=== PATIENT | male | born 1965 | race Caucasian/White ===

== ENCOUNTER 2021-02-07 05:14 | Day surgery (SDC) | payer OTHER, BC ==
[~2021-02-07] VITALS: Ht 167.6 cm; Wt 98.2 kg
[~2021-02-07 05:14] MED LIST: ASPIRIN 32325 MG/TAB PO; BYSTOLIC5 MG PO; SYNTHROID0.125 MG/T PO
[2021-02-07 06:01] VITALS: BP 147/94; PULSE 78; TEMP 97.3
[2021-02-07] MEDS ORDERED: SYNTHROID0.1 MG/TAB PO (06:23)
[2021-02-07] MEDS ORDERED: COZAAR100 MG PO (06:23)
[2021-02-07] MEDS ORDERED: ZYRTEC ALLERGY10 MG PO (06:24)
[2021-02-07] MEDS ORDERED: ASPIRIN 81M81 MG/TA2 PO (06:24)
[2021-02-07 08:11] VITALS: BP 105/63; PULSE 87; TEMP 97.5
--- NOTE | 2021-02-07 08:11 | NUR ---
The patient arrived back to [facility] from the operating room at this time. The patient appears alert and oriented at this time. Post operative vital signs were started at this time. The patient has oxygen in place at 5L per simple mask. The patient has mesh underwear and folded 4x4 to this rectum both appear to be intact at this time. The patient denies wanting anything to eat or drink at this time. Call light is within reach. was brought back to be at his bedside.
[2021-02-07 08:26] VITALS: BP 107/63; PULSE 80
[2021-02-07] MEDS ORDERED: NORCO 325 MG-51 TAB PO (08:26)
--- NOTE | 2021-02-07 08:26 | NUR ---
The patient was weaned down to 3L of oxygen at this time and appears to be tolerating it well. The patient agrees to try some water at this time. Vital signs appear stable. The patient's is at his bedside. Will continue to monitor the patient.
[2021-02-07 08:41] VITALS: BP 112/70; PULSE 77
--- NOTE | 2021-02-07 08:41 | NUR ---
The patient was weaned off oxygen and appears to be tolerating room air well. The patient has tolerated the ice water well and requests to try a muffin at this time. Vital signs remain stable. Will continue to monitor the patient.
[2021-02-07 09:00] VITALS: BP 122/70; PULSE 73
--- NOTE | 2021-02-07 09:10 | NUR ---
The patient has finished his muffin and appeared to tolerate it well. The patient was given a PRN dose of Bruce one tab to continue to pain control upon discharge. The patient described having an urge to have a bowel movement and was escorted to the bathroom with the stand by assistance of one nurse and appeared to tolerate the activity well. The patient was unable to have the bowel movement and the gauze to his rectum was replaced after he was finished trying.
[2021-02-07 09:30] VITALS: BP 121/76; PULSE 75
--- NOTE | 2021-02-07 09:30 | NUR ---
Discharge instructions were reviewed with the patient and his at this time. They both verbalized understanding and have no questions for the nurse at this itme. The patient's IV to his left hand was removed and a pressure dressing was applied to the site. The nurse instructed the patient to get dressed and notify the staff when he is ready to escorted out.
--- NOTE | 2021-02-07 09:40 | NUR ---
The patient was escorted out via wheelchair to a private vehicle by SCARLETT Moralez. The patient's belongings and discharge paperwork were sent with him. The patient's is present to drive him home.
== END 2021-02-07 09:40 | disposition home or self-care (01) ==
LOC: SDCO 05:14
DX: K64.2 Third degree hemorrhoids (principal); K64.4 Residual hemorrhoidal skin tags; I10 Essential (primary) hypertension; E03.9 Hypothyroidism, unspecified; Z79.890 Hormone replacement therapy; Z79.899 Other long term (current) drug therapy; Z79.82 Long term (current) use of aspirin
CPT/HCPCS: J0690; J2405; J2704; J3010; J7120

== ENCOUNTER 2021-02-08 07:39 | Emergency (ER) | payer OTHER, BC ==
[~2021-02-08] VITALS: Ht 170.2 cm; Wt 100.0 kg
[~2021-02-08 07:39] MED LIST changes: +ASPIRIN 81M81 MG/TA2 PO; +COZAAR100 MG PO; +NORCO 325 MG-51 TAB PO; +SYNTHROID0.1 MG/TAB PO; +ZYRTEC ALLERGY10 MG PO
[2021-02-08 08:13] LABS: BASO # 0.1 (0.0-0.2); BASO % 0.4 % (0.0-2.0); EOS % 0.2 % (0-4.0); GRAN # 10.6 (1.4-6.5); GRAN % 79.7 % (42.2-75.2); HEMATOCRIT 41.8 % (42.0-52.0); HEMOGLOBIN 14.1 g/dl (13.5-18.0); LYMPH # 1.6 (1.2-3.4); LYMPH % 12.3 % (20.0-51.0); MEAN CELL VOLUME 83 fl (80.0-100.0); MEAN CORPUSCULAR HEMOGLOBIN 28 pg (27.0-31.0); MEAN CORPUSCULAR HGB CONC 34 g/dl (33.0-37.0); MEAN PLATELET VOLUME 9.9 fl (7.4-10.4); MONO # 0.9 (0.1-0.6); MONO % 7.1 % (1.7-9.3); PLATELET COUNT 244 K/mm3 (130-400); RED BLOOD COUNT 5.01 M/mm3 (4.20-5.60); REDCELL DISTRIBUTION WIDTH-CV 12.3 % (11.5-14.5)
[2021-02-08 08:43] LABS: ALBUMIN 3.6 gm/dL (3.5-5.0); BILIRUBIN,TOTAL 0.9 mg/dL (0.0-1.0); CALCIUM 8.4 mg/dL (8.4-10.2); CREATININE, serum 0.94 (0.66-1.25); POTASSIUM 3.9 mmol/L (3.4-5.0); TOTAL PROTEIN 6.7 gm/dL (6.4-8.2)
[2021-02-08 08:52] LABS: COLLECTION METHOD CLEAN CATCH
[2021-02-08 08:59] LABS: MUCOUS Present /lpf; PH 7 (5-8); SQUAMOUS EPITHELIAL None Seen /hpf; URINE APPEARANCE Clear; URINE BACTERIA None Seen /hpf; URINE BILIRUBIN Negative (NEGATIVE); URINE BLOOD Negative (NEGATIVE); URINE COLOR Straw; URINE GLUCOSE 1+ (NEGATIVE); URINE KETONE Trace (NEGATIVE); URINE LEUKOCYTE ESTERASE Negative (NEGATIVE); URINE NITRATE Negative (NEGATIVE); URINE PROTEIN(semi-quant) Negative (NEGATIVE); URINE RBC 0-2 /hpf; URINE UROBILINOGEN Negative (NEGATIVE)
[2021-02-08 09:57] VITALS: BP 154/95; PULSE 99; TEMP 98.7
== END 2021-02-08 10:12 | disposition home or self-care (01) ==
LOC: COL.ER 07:39
PROVIDERS: Emergency Medicine
DX: E86.0 Dehydration (principal); R50.9 Fever, unspecified
CPT/HCPCS: J7120

== ENCOUNTER 2021-02-16 21:47 | Observation (INO) | payer OTHER, BC ==
[~2021-02-16] VITALS: Ht 170.2 cm; Wt 100.1 kg
[2021-02-16 22:16] LABS: BASO # 0.1 (0.0-0.2); BASO % 0.7 % (0.0-2.0); EOS # 0.3 (0.0-0.7); GRAN # 7.4 (1.4-6.5); HEMOGLOBIN 11.8 g/dl (13.5-18.0); LYMPH # 4.3 (1.2-3.4); LYMPH % 32.9 % (20.0-51.0); MEAN CELL VOLUME 83 fl (80.0-100.0); MEAN CORPUSCULAR HEMOGLOBIN 28 pg (27.0-31.0); MEAN CORPUSCULAR HGB CONC 34 g/dl (33.0-37.0); MEAN PLATELET VOLUME 8.9 fl (7.4-10.4); MONO # 0.9 (0.1-0.6); MONO % 7.1 % (1.7-9.3); PLATELET COUNT 352 K/mm3 (130-400); RED BLOOD COUNT 4.21 M/mm3 (4.20-5.60); REDCELL DISTRIBUTION WIDTH-CV 12.3 % (11.5-14.5)
[2021-02-16 22:19] LABS: HEMATOCRIT 34.9 % (42.0-52.0)
[2021-02-16 22:34] LABS: ALBUMIN 3.6 gm/dL (3.5-5.0); BILIRUBIN,TOTAL 0.3 mg/dL (0.0-1.0); CALCIUM 8.5 mg/dL (8.4-10.2); CREATININE, serum 0.97 (0.66-1.25); POTASSIUM 3.9 mmol/L (3.4-5.0); TOTAL PROTEIN 6.7 gm/dL (6.4-8.2)
[2021-02-17] VITALS (14 sets, daily range): BP systolic 101–160; BP diastolic 57–75; PULSE 64–99; TEMP 98.1–98.8
--- NOTE | 2021-02-17 01:25 | NUR ---
ARRIVES VIA BED FROM PACU POST SURGERY. IS ALERT AND ORIENTED X4. IVF TO RIGHT UPPER FOREARM, NO REDNESS OR SWELLING. HAS MESH PANTIES ON, RECTAL PACKING IN PLACE. SPINAL ANESTHETIC WAS GIVEN, PT HAS NUMBNESS IN LEGS. SCDS ON.
[2021-02-17 02:40] LABS: HEMATOCRIT 27.5 % (42.0-52.0); HEMOGLOBIN 9.1 g/dl (13.5-18.0)
--- NOTE | 2021-02-17 04:11 | NUR ---
PT REPORTS ABD CRAMPING, OFFERED BEDPAN, PT REFUSES AT THIS TIME. SPINAL WEARING OFF, STILL HAS NUMBNESS IN LEGS, DOESN'T FEEL LIKE HE COULD WALK AT THIS TIME.
--- NOTE | 2021-02-17 05:00 | NUR ---
PT VOIDING PER URINAL WITHOUT PROBLEM. ASSISTED TO BATHROOM FOR BM, NO SUCCESS. RECTAL PACKING IN PLACE.
--- NOTE | 2021-02-17 06:39 | NUR ---
PT REPORTS NOT BEING ABLE TO URINATE, PREVIOUSLY HAS BEEN URINATING WITH SOME BURNING. WILL BLADDER SCAN.
--- NOTE | 2021-02-17 06:41 | NUR ---
PT HAS 103CC IN HIS BLADDER PER BLADDER SCAN.
[2021-02-17 06:51] LABS: HEMATOCRIT 27.6 % (42.0-52.0); HEMOGLOBIN 9.3 g/dl (13.5-18.0)
--- NOTE | 2021-02-17 07:00 | NUR ---
PT HAS MODERATE FORMED BM ON THE TOILET. RECTAL PACKING OUT.
--- NOTE | 2021-02-17 10:28 | NUR ---
Initial visit; Patient thanked Chummer for looking in on him and offering God's blessings.
--- NOTE | 2021-02-17 11:30 | NUR ---
Patient is doing ok. He has been resting this morning. He is tolerating clear liquid diet without issues. Denies pain and nausea. He had a small bloody stool, it was dark red, soft. No clots noted. No other changes at this time. Call light within reach.
--- NOTE | 2021-02-17 13:19 | NUR ---
SW met with the patient to discuss discharge plan. The patient lives in [place] with his , Giulia ([phone]), and their [id number] daughter. He reports independence with ADLs and does not have any DME. The patient's PCP is Dr. Mir Mistry and [facility] and [facility] in [place]. He reports no difficulties obtaining his meds. The patient does not have a DPOA-HC and he was not interested in completing one while here. The patient plans to return home with his family upon discharge. No additional needs at this time. *Discharge plan: home with family*
[2021-02-17 13:24] LABS: HEMATOCRIT 24.8 % (42.0-52.0); HEMOGLOBIN 8.3 g/dl (13.5-18.0)
--- NOTE | 2021-02-17 14:50 | NUR ---
Report from SCARLETT Rocha. Patient laying in bed, family at the bedside. Call light within reach. No needs expressed from the patient
--- NOTE | 2021-02-17 17:43 | NUR ---
Patient had one BM that was small and blood tinged. Denies any pain or discomfort. IV CDI, fluids infusing. VSS. A&Ox3. Family at the bedside. No further needs expressed from the patient. Call light within reach
[2021-02-17 19:30] LABS: HEMOGLOBIN 8.2 g/dl (13.5-18.0)
--- NOTE | 2021-02-17 21:00 | NUR ---
PT IN BED. DENIES PAIN. IS ALERT AND ORIENTED X4. IVF TO RIGHT FOREARM WITHOUT REDNESS OR SWELLING. REQUESTED PT CALL THIS NURSE IF HE HAS A BM, VERBALIZED UNDERSTANDING. VOIDING WITHOUT PROBLEM.
[2021-02-18 00:41] VITALS: BP 103/42; PULSE 83; TEMP 98.9
[2021-02-18 01:43] LABS: HEMATOCRIT 25.2 % (42.0-52.0)
[2021-02-18 01:46] LABS: HEMOGLOBIN 8.3 g/dl (13.5-18.0)
[2021-02-18 04:51] VITALS: BP 114/59; PULSE 80; TEMP 99.4
--- NOTE | 2021-02-18 06:00 | NUR ---
NO STOOLS THIS SHIFT. VOIDING WITHOUT DIFFICULTY. DENIES PAIN.
[2021-02-18 07:19] LABS: HEMATOCRIT 24.7 % (42.0-52.0)
[2021-02-18 07:59] VITALS: BP 125/69; PULSE 83; TEMP 99.4
--- NOTE | 2021-02-18 08:00 | NUR ---
Patient resting in bed at this time. Patient is alert and oriented, answers questions appropriately. Patient reports that he has not had bloody stools this morning, patient instructed to report stools to allow staff to assess them. Patient verbalizes understanding and denies pain or needs at this time, call light within reach.
[2021-02-18 12:24] VITALS: BP 131/73; PULSE 89; TEMP 98.5
[2021-02-18 15:12] VITALS: BP 131/73; PULSE 101; TEMP 98.8
--- NOTE | 2021-02-18 16:10 | NUR ---
Discharge teaching completed. Discussed discharge instructions, discharge medications, and follow up appointment. Questions asked and answered. IV removed, catheter intact, hemostasis achieved. Patient escorted to ED entrance where he entered a private vehicle.
== END 2021-02-18 16:10 | disposition home or self-care (01) ==
LOC: COL.ER 21:47 → SURG 23:26
PROVIDERS: Emergency Medicine; Surgery; ADMIT Surgery
DX: K91.840 Postprocedural hemorrhage of a digestive system organ or structure following a digestive system procedure (principal); K62.5 Hemorrhage of anus and rectum; I10 Essential (primary) hypertension; E03.9 Hypothyroidism, unspecified; Z90.89 Acquired absence of other organs; Z79.890 Hormone replacement therapy; Z79.899 Other long term (current) drug therapy; Z79.82 Long term (current) use of aspirin; Z79.891 Long term (current) use of opiate analgesic
CPT/HCPCS: G0378; J2250; J2405; J3010; J3480; J7030

== ENCOUNTER 2021-09-14 19:02 | Emergency (ER) | payer OTHER, BC ==
[2021-09-14 19:06] VITALS: TEMP 97.9
[2021-09-14 19:36] LABS: BASO # 0.1 K/mm3 (0.0-0.2); BASO % 0.7 % (0.0-2.0); EOS # 0.1 K/mm3 (0.0-0.7); EOS % 1.2 % (0.0-4.0); GRAN # 6.9 K/mm3 (1.4-6.5); GRAN % 62.9 % (42.2-75.2); HEMOGLOBIN 15.2 g/dl (13.5-18.0); LYMPH # 3.1 K/mm3 (1.2-3.4); LYMPH % 28.4 % (20.0-51.0); MEAN CELL VOLUME 83 fl (80.0-100.0); MEAN CORPUSCULAR HEMOGLOBIN 28 pg (27-31); MEAN CORPUSCULAR HGB CONC 34 g/dl (33.0-37.0); MEAN PLATELET VOLUME 10.2 fl (7.4-10.4); MONO # 0.7 K/mm3 (0.1-0.6); MONO % 6.4 % (1.7-9.3); PLATELET COUNT 271 K/mm3 (130-400); RED BLOOD COUNT 5.44 M/mm3 (4.20-5.60)
[2021-09-14 19:54] LABS: ALBUMIN 4.1 gm/dL (3.5-5.0); BILIRUBIN,TOTAL 0.6 mg/dL (0.2-1.2); C-REACTIVE PROTEIN 0.21 mg/dL (0.00-0.50); CALCIUM 8.8 mg/dL (8.4-10.2); CREATININE, serum 1.33 mg/dL (0.72-1.25); POTASSIUM 4.2 mmol/L (3.5-4.5); TOTAL PROTEIN 7.8 gm/dL (6.2-8.1)
[2021-09-14 20:16] LABS: COLLECTION METHOD CLEAN CATCH
[2021-09-14 20:25] LABS: MUCOUS Present (NOT PRESENT); PH 5 (5-8); SQUAMOUS EPITHELIAL 0-2 /hpf (0-10); URINE APPEARANCE Hazy (CLEAR/HAZY); URINE BACTERIA None Seen /hpf (NONE SEEN); URINE BILIRUBIN Negative (NEGATIVE); URINE BLOOD 3+ (NEGATIVE); URINE COLOR Yellow (YELLOW); URINE GLUCOSE Negative (NEGATIVE); URINE KETONE Trace (NEGATIVE); URINE LEUKOCYTE ESTERASE Negative (NEGATIVE); URINE NITRATE Negative (NEGATIVE); URINE PROTEIN(semi-quant) 1+ (NEGATIVE); URINE RBC >50 /hpf (0-2); URINE UROBILINOGEN Negative (NEGATIVE)
[2021-09-14] MEDS ORDERED: ROXICODONE 55 MG/TAB PO (21:41)
[2021-09-14] MEDS ORDERED: ZOFRAN ODT4 MG PO (21:41)
[2021-09-14 22:20] VITALS: BP 141/95; PULSE 92
== END 2021-09-14 22:20 | disposition home or self-care (01) ==
LOC: COL.ER 19:02
PROVIDERS: Physician Assistant
DX: R10.32 Left lower quadrant pain (principal); R11.2 Nausea with vomiting, unspecified; I10 Essential (primary) hypertension; Z79.899 Other long term (current) drug therapy
CPT/HCPCS: J1170; J2405; J7030; Q9967